=== PATIENT | female | born 1930 | race Caucasian/White ===

== ENCOUNTER 2017-04-27 15:34 | Emergency (ER) | payer MEDICARE, BC ==
[~2017-04-27 15:34] MED LIST: BONI150T
[2017-04-27 15:40] VITALS: BP 136/80; PULSE 100; RESP 16; TEMP 97.6; O2SAT 98
[2017-04-27] MEDS ORDERED: SITA25 PO (15:52)
[2017-04-27] MEDS ORDERED: [UNRECOGNIZED DRUG - OTHER] (15:52)
--- NOTE | 2017-04-27 16:23 | PD ---
HPI . Fall Chief Complaint: Fall Time Seen by Provider: 16:09 Travel History International Travel<30 days: Yes Contact w/Intl Traveler<30days: [place] Country Traveled to: [facility] Traveled to known affect area: No History of Present Illness HPI Patient presents status post a trip and fall and injury to the right side of her head and to the left chin. She states that she was coming out of couple of steps with her arms full. She states that she lost her balance and fell striking her head and her chin presumably on the driveway. She denies loss of consciousness per family member reports that there may have been a loss of consciousness. She denies neck pain. He does not take any blood thinners. She states that she is able to walk on her left leg. She states that she cannot have a tetanus shot because of allergy. PFSH Past Medical History Blood Disorders: No Cancer: No Cardiovascular Problems: No Diabetes: Yes Patient Takes Glucophage: No Gastrointestinal Disorders: Yes (DIVERTICULITIS WITH "LEAKAGE") GERD: Yes Genitourinary: No Immune Disorder: No Musculoskeletal: Yes (/OSTEOPOROSIS) Neurologic: No Reproductive: No Ulcer: Yes Tetanus Vaccination: > 5 Years Influenza Vaccination: Yes ?: Not Past Surgical History Abdominal Surgery: Yes (APPENDECTOMY, GI) Appendectomy: Yes Joint Replacement: Yes (HIP) Other Surgery: Yes Social History Alcohol Use: No Tobacco Use: No Substance Use: No Allergies-Medications (Allergen,Severity, Reaction): Coded Allergies: Sulfa (Sulfonamide Antibiotics) (Verified Allergy, Severe, 04/27/17) cisapride (Verified Allergy, Severe, 04/27/17) ibuprofen (Verified Allergy, Severe, 04/27/17) omeprazole (Verified Allergy, Severe, 04/27/17) propoxyphene (Verified Allergy, Severe, 04/27/17) tetanus immune globulin (Verified Allergy, Severe, 04/27/17) Uncoded Allergies: PROLOSEC (Allergy, Mild, 09/25/05) PROPULSID (Allergy, Mild, HALLUCINATIONS, 09/25/05) SULFA (Allergy, Mild, Rash, 09/25/05) TETANUS (Allergy, Mild, LOCALIZED SWELLING, 09/25/05) Reported Meds & Prescriptions Reported Meds & Active Scripts Active Reported Aspirin Low Dose (Aspirin) 81 Mg Chew 81 Mg CHEW DAILY Januvia (Sitagliptin Phosphate) 25 Mg Tab Unknown Dose PO DAILY [Stalix] Review of Systems Eyes: No: Blurred Vision HENT: Positive: Headaches (she is complaining of pain at the location of the contusion) Gastrointestinal: No: Nausea, Vomiting Physical Exam Narrative GENERAL: Awake and alert and in no acute distress. SKIN: Warm and dry. She has dried blood in her hair on the right-hand side. She has an associated contusion. No active bleeding. HEAD: Normocephalic EYES: Pupils are equal. Extraocular movements are intact. NECK: Normal range of motion. Nontender. RESPIRATORY: Nonlabored respirations. Bili MUSCULOSKELETAL: Hematoma to the left santos with an abrasion in the center of it. Localized tenderness. She is ambulatory. NEUROLOGICAL: Nonfocal. PSYCHIATRIC: Appropriate mood and affect. Data Data Last Documented VS Vital Signs Date Time Temp Pulse Resp B/P (MAP) Pulse Ox O2 Delivery O2 Flow Rate FiO2 04/27/17 17:47 71 16 185/94 (124) 96 Room Air 04/27/17 15:[address] Brain W/O Iv Contrast(Rout) (04/27/17 16:10) MDM Medical Decision Making Medical Screen Exam Complete: Yes Emergency Medical Condition: Yes Differential Diagnosis My differential diagnosis of head trauma includes but is not limited to scalp contusion, concussion, intracerebral hemorrhage. Narrative Course This patient presents for the evaluation of a head injury. She does not having any signs or symptoms of intracerebral hemorrhage. CT is pending. Last Impressions Head CT 04/27/17 1610 Signed Impressions: Service Date/Time: Thursday, April 27, 2017 17:03 - CONCLUSION: Small right cephalhematoma Intracranial contents unremarkable. Enzo Chu MD FACR Diagnosis Primary Impression: Scalp hematoma Qualified Codes: S00.03XA - Contusion of scalp, initial encounter Additional Impression: Leg hematoma Qualified Codes: S80.12XA - Contusion of left lower leg, initial encounter Patient Instructions: General Instructions, Scalp Contusion in Adults (ED) Disposition: 01 DISCHARGE HOME Condition: Stable Kitty Barros MD Apr 27, 2017 16:23
[2017-04-27 17:47] VITALS: BP 185/94; PULSE 71; RESP 16; O2SAT 96
--- NOTE | 2017-04-27 17:48 | RADRPT ---
EXAM DATE/TIME: 04/27/2017 17:03 [facility] COMPARISON: No previous studies available for comparison. INDICATIONS : Trauma. Fall. Right head laceration. RADIATION DOSE: 57.91 CTDIvol (mGy) MEDICAL HISTORY : Diabetes mellitus type 2. Diverticulitis. Gastroesophageal reflux disease. SURGICAL HISTORY : Appendectomy. ENCOUNTER: Initial ACUITY: 1 day PAIN SCALE: 6/10 LOCATION: Right cranial TECHNIQUE: Multiple contiguous axial images were obtained of the head. Using automated exposure control and adj ustment of the mA and/or kV according to patient size, radiation dose was kept as low as reasonably a chievable to obtain optimal diagnostic quality images. DICOM format image data is available electro nically for review and comparison. FINDINGS: CEREBRUM: The ventricles are normal for age. No evidence of midline shift, mass lesion, hemorrhage or acute in farction. No extra-axial fluid collections are seen. POSTERIOR FOSSA: The cerebellum and brainstem are intact. The 4th ventricle is midline. The cerebellopontine angle i s unremarkable. EXTRACRANIAL: The visualized portion of the orbits is intact. SKULL: Small right cephalhematoma No evidence of skull fracture. CONCLUSION: Small right cephalhematoma Intracranial contents unremarkable. Enzo Chu MD FACR on April 27, 2017 at 17:46 Board Certified Radiologist. This report was verified electronically.
[2017-04-27] MEDS ORDERED: ASPI81CH6 CHEW (17:51)
[2017-04-27 18:39] VITALS: BP 173/91; PULSE 76; RESP 16; O2SAT 97
[2017-04-27 18:50] VITALS: BP 168/74
== END 2017-04-27 19:00 | disposition home or self-care (01) ==
LOC: PHED 15:34
DX: S00.03XA Contusion of scalp, initial encounter (principal); S80.12XA Contusion of left lower leg, initial encounter; W01.0XXA Fall on same level from slipping, tripping and stumbling without subsequent striking against object, initial encounter
CPT/HCPCS: 70450